=== PATIENT | male | born 1940 | race Caucasian/White ===

== ENCOUNTER → 2024-10-25 | Outpatient (CLI) | payer OTHER, SELFPAY ==
[2024-10-25 16:00] LABS: Basophils # (Auto) 0.1 Thou/mm3 (0.0-0.2); Basophils % (Auto) 1 % (0-2.5); Eosinophils # (Auto) 0.3 Thou/mm3 (0.0-0.5); Eosinophils % (Auto) 4 % (0-10); Hematocrit 44.1 % (41.0-53.0); Immature Granulocytes % (Auto) 0 % (0-0); Immature Granulocytes Auto 0.02 Thou/mm3 (0.00-0.00); Lymphocytes # (Auto) 1.7 Thou/mm3 (1.0-4.8); Lymphocytes % (Auto) 24 % (10-50); Mean Corpuscular Hemoglobin 33.3 pg (25.0-35.0); Mean Corpuscular Volume 98 fL (80-100); Monocytes # (Auto) 0.5 Thou/mm3 (0.0-0.8); Monocytes % (Auto) 7 % (0-12); Neutrophils # (Auto) 4.7 Thou/mm3 (1.8-7.7); Neutrophils % (Auto) 64 % (37-80); Nucleated Red Blood Cell % 0 /100 WBC (0); Platelet Count 191 Thou/mm3 (140-440); RDW Standard Deviation 51.1 fL (35.1-43.9); White Blood Count 7.4 Thou/mm3 (3.8-10.6)
[2024-10-25 16:32] LABS: Glucose Estimated Average 120 mg/dL (80-131); Hemoglobin A1C 5.8 % Hgb (4.8-6.0)
[2024-10-25 16:36] LABS: Alanine Aminotransferase 19 U/L (10-49); Albumin, Serum 4.3 gm/dL (3.4-4.8); Albumin/Globulin Ratio 1.9 (1.2-2.2); Alkaline Phosphatase 59 U/L (46-116); Anion Gap 5 (7-16); Aspartate Amino Transferase 35 U/L (0-34); BUN/Creatinine Ratio 14 Ratio (12-20); Bilirubin,Total 0.9 mg/dL (0.3-1.2); Blood Urea Nitrogen 15 mg/dL (9-23); Calcium 9.8 mg/dL (8.3-10.6); Calcium (Corrected) 9.8 mg/dL (8.5-10.1); Cardiac Risk Estimate 3.2 RATIO (4.0-6.7); Chloride 105 mMol/L (98-107); Cholesterol 90 mg/dL (132-200); Creatinine (Component) 1.1 mg/dL (0.6-1.3); Globulin 2.3 gm/dL (2.3-3.5); Glucose 86 mg/dL (74-106); HDL Cholesterol 28 mg/dL (40-60); LDL Cholesterol,Calculated 37 mg/dL (0-130); Osmolality,Calculated 275 (275-295); Potassium 4.2 mMol/L (3.4-5.1); Sodium 138 mMol/L (136-145); Thyroid Stimulating Hormone 2.28 uIU/mL (0.55-4.78); Total Protein 6.6 gm/dL (5.7-8.2); Triglycerides 124 mg/dL (30-150); eGFR > 60 See Note
[2024-10-25 17:00] LABS: Creatinine MALB Rnd Ur 83 mg/dL (30-125); Microalbumin Creat Ratio 261 mg/gCrea (<30); Microalbumin, Random Urine 217 mg/L (0-300)
== END | disposition home or self-care (01) ==
PROVIDERS: PCP Family Medicine; Referring Provider Family Medicine; Visit Provider Family Medicine
DX: E11.65 Type 2 diabetes mellitus with hyperglycemia (principal)
CPT/HCPCS: 36415; 80053; 80061; 82043; 82570; 83036; 84443; 85025

== ENCOUNTER → 2024-12-27 | Outpatient (CLI) | payer OTHER, SELFPAY ==
--- NOTE | 2024-12-27 13:35 | XR_ITS ---
Examination: Bone densitometry Date and time of exam:December 27, 2024 1333 hours INDICATIONS: 84-year-old male with diagnosis age related osteoporosis, diabetes diagnosis Technique: Lumbar spine and hip total bone mineralization values of an calculated. Peak reference and age match control results have been displayed. Findings: Lumbar spine total bone mineralization is1.365 gm/cm2. This is 2.5 standard deviations above peak reference. This is 3. standard deviations above age-matched controls. Hip total bone mineralization is 0.974 gm/cm2 This is 0.4 standard deviations below peak reference. This is 0.9 standard deviations above age-matched controls Impression: There is normal mineralization based on lumbar spine measurements. There is normal mineralization based on hip measurements
== END | disposition home or self-care (01) ==
LOC: CDIM 13:08
PROVIDERS: Referring Provider Family Medicine; Visit Provider Family Medicine
DX: M81.0 Age-related osteoporosis without current pathological fracture (principal)
CPT/HCPCS: 77080

== ENCOUNTER → 2025-01-31 | Outpatient (CLI) | payer OTHER, SELFPAY ==
[2025-01-31 13:46] LABS: Collection Type, Urine Clean Catch; Squamous Epithelial Cell,Urine 0 /hpf (0-5)
[2025-01-31 14:06] LABS: Basophils # (Auto) 0.1 Thou/mm3 (0.0-0.2); Basophils % (Auto) 1 % (0-2.5); Eosinophils # (Auto) 0.3 Thou/mm3 (0.0-0.5); Eosinophils % (Auto) 5 % (0-10); Immature Granulocytes % (Auto) 0 % (0-0); Immature Granulocytes Auto 0.01 Thou/mm3 (0.00-0.00); Lymphocytes # (Auto) 1.5 Thou/mm3 (1.0-4.8); Lymphocytes % (Auto) 22 % (10-50); Mean Corpuscular HGB Conc 34.1 g/dl (31.0-37.0); Mean Corpuscular Hemoglobin 32.6 pg (25.0-35.0); Mean Corpuscular Volume 96 fL (80-100); Monocytes # (Auto) 0.5 Thou/mm3 (0.0-0.8); Monocytes % (Auto) 8 % (0-12); Neutrophils # (Auto) 4.2 Thou/mm3 (1.8-7.7); Neutrophils % (Auto) 64 % (37-80); Nucleated Red Blood Cell % 0 /100 WBC (0); Platelet Count 188 Thou/mm3 (140-440); White Blood Count 6.5 Thou/mm3 (3.8-10.6)
[2025-01-31 14:13] LABS: Bilirubin,Urine Negative (Negative); Blood,Urine Negative (Negative); Clarity,Urine Clear (Clear/Hazy); Color,Urine Lt-Yellow (Lt Yel-Yel); Glucose, Urine Negative (Negative); Ketones,Urine Negative (Negative); Leukocyte Esterase,Urine Negative (Negative); Nitrite,Urine Negative (Negative); Protein,Urine 1+ (Neg - Trace); RBC,Urine 4 /hpf (0-3); Specific Gravity,Urine 1.013 (1.001-1.035); Urobilinogen,Urine Negative mg/dL (0.0-1.0); WBC,Urine 1 /hpf (0-5)
[2025-01-31 14:21] LABS: Glucose Estimated Average 160 mg/dL (80-131); Hemoglobin A1C 7.2 % Hgb (4.8-6.0)
[2025-01-31 14:24] LABS: Alanine Aminotransferase 21 U/L (10-49); Albumin, Serum 4.2 gm/dL (3.4-4.8); Albumin/Globulin Ratio 1.7 (1.2-2.2); Alkaline Phosphatase 63 U/L (46-116); Anion Gap 6 (7-16); Aspartate Amino Transferase 32 U/L (0-34); BUN/Creatinine Ratio 12 Ratio (12-20); Bilirubin,Total 0.7 mg/dL (0.3-1.2); Blood Urea Nitrogen 13 mg/dL (9-23); Calcium 10.1 mg/dL (8.3-10.6); Calcium (Corrected) 10.1 mg/dL (8.5-10.1); Carbon Dioxide 29.8 mMol/L (20.0-31.0); Chloride 105 mMol/L (98-107); Cholesterol 78 mg/dL (132-200); Creatinine (Component) 1.1 mg/dL (0.6-1.3); Globulin 2.5 gm/dL (2.3-3.5); Glucose 83 mg/dL (74-106); HDL Cholesterol 26 mg/dL (40-60); LDL Cholesterol,Calculated 24 mg/dL (0-130); Osmolality,Calculated 280 (275-295); Potassium 4.3 mMol/L (3.4-5.1); Sodium 141 mMol/L (136-145); Thyroid Stimulating Hormone 2.35 uIU/mL (0.55-4.78); Total Protein 6.7 gm/dL (5.7-8.2); Triglycerides 140 mg/dL (30-150); eGFR > 60 See Note
[2025-01-31 15:09] LABS: Creatinine MALB Rnd Ur 47 mg/dL (30-125); Microalbumin Creat Ratio 415 mg/gCrea (<30); Microalbumin, Random Urine 195 mg/L (0-300)
== END | disposition home or self-care (01) ==
LOC: COPL 13:05
PROVIDERS: PCP Family Medicine; Referring Provider Family Medicine; Visit Provider Family Medicine
DX: Z00.00 Encounter for general adult medical examination without abnormal findings (principal); E11.59 Type 2 diabetes mellitus with other circulatory complications; E78.2 Mixed hyperlipidemia; I10 Essential (primary) hypertension
CPT/HCPCS: 36415; 80053; 80061; 81001; 82043; 82570; 83036; 84443; 85025

== ENCOUNTER 2025-04-26 12:50 | Outpatient (RCR) | payer OTHER, SELFPAY ==
--- NOTE | 2025-04-26 14:35 | CTCTXPLN_ITS ---
[facility] [address] [place], [place] [address] Physician Clinical Treatment Planning Note Date of Service: 04/26/2025 Name: CIERRA HILL : 1940 The patient has agreed to proceed with Radiation therapy. Tests and supporting medical records were interpreted to assist in defining the tumor location and extent of disease. Further imaging will be necessary to contour and delineate the volume to which the XRT will be provided. A. Treatment Intent: curative B. Modality: 9MeV C. Requested Technique: D. Treatment Site: Posteror L ear E. Critical structures to be contoured on plan: F. In order to accomplish this plan, I am ordering/Prescribing the followin. Simulations (s) will be performed to accomplish a reproducible treatment position, to determine optimal treatment portals/beam arrangements, to design beam modifying devices and verify treatment portals on patient prior to the commencement of Radiation Therapy. 2. Devices; for immobilization and beam shapin. CT Guidance for placement of XRT soler Scan area: 4. Portal images Frequency: 5. Invivo transit dose measurement once per week on all VMAT patients. 6. Special Physics Consult Requested for: 7. Other requests: G. Dose Objectives:curative Electronically signed by: Jeffrey Yung M.D. 04/26/2025 2:33 PM
--- NOTE | 2025-04-26 14:37 | CTCTXPLNST_ITS ---
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 Pt Treatment Intent: curative palliative other: Stage: Procedure CPT # Ordered Spec. Procedure 03609 Rock Complex (set-up) 90208 1 Rock Simple 95698 IMRT Plan 74643 MLC Devices VMAT 09963 Rock 3 D 73213 TRTMT dev Complex 40370 Head rest/E field 2 TRTMT dev simple 91108 1 cm bolus 1 Basic Cristino 78741 1 Special Dosimetry 09175 Spec Physics 95643 Port Films 42099 SRS Cranial/1FX 14681 SBR 5 FX or Less /ex: 5 = 5 fx 79766 IMRT Simple 10597 IMRT Complex 67453 IGRT 98889 Rad del com 6-10 03961 6600 33 Rad del com 11- 30456 Cont Med Physics 44876 6 Treatment Planning 51700 1 Rad del com 20 mev 11207 Rad del inter 6 65048 Rad del inter 11 15433 Rad del simple 6-10 54323 Rad del simple 11 42973 Special Port Plan 11814 TRTMT dev inter 21701 Isodose Complex 21931 Isodose simple 99791 Resp Motion Mgmt Simulation 79737 Placement of Fiducial Markers 18013 Electronically Signed By: Jeffrey Yung MD, DABR 04/26/2025 2:34 PM
--- NOTE | 2025-04-26 16:58 | CTCCONSULT_ITS ---
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 Norris Owen MD [facility] History of Present Illness: Patient is an 84-year-old gentleman who had a biopsy of his left posterior ear 01/18/2025. revealing SCCA well-differentiated. There was Mohs micrographic surgery performed by Dr. Gumaro Cassidy March 16 but due to inability to clear margins, was recommended for postop radiation therapy. Preop lesion was described to be 2.6 cm ulcerated plaque on the posterior aspect the left ear. Postop described to be 5 cm in size grade 1 PNI positive. Depth of invasion was noted to be to the perichondrium. Patient was evaluated for radiation therapy at [facility] but due to the long distance involved for this elderly gentleman and the standard fractions needed due to the cartilaginous involvement was referred to the cancer center where he lives in [facility] Past Medical History: Diabetes GERD hypertension cardiac arrhythmia multiple pre and skin cancers removed on extremities and elsewhere over the years. Medications amlodipine atorvastatin Betamethasone Allergies none known Social History: Denies drinking smoking retired Physical Exam: General: Well-appearing gentleman no acute distress HEENT: 5 cm area longitudinal healing region in the left posterior auricular region. Neck nodes not felt. Assessment: 1. Patient with T3 sized area SCCA grade 1 positive PNI positive margins invading cartilaginous tissues status post Mohs microscopic surgery February 1725. 2. Postop radiation using standard fractionation 6000 to 6500 cGy to a moderate-sized field reducing chance for cartilage damage. 3. CT of the neck reportedly has been ordered. Will also do pacemaker check pre and post treatments. 4. Patient told the side effects to radiation to site such as skin effects and fatigue. 5. Would like to thank Dr. Norris Owen for his kind referral to have patient treated closer to home. Cc: Lupillo Owen MD [facility]. MD Aunradha Abarca Electronically signed by: Jeffrey Yung MD, DABR 04/26/2025 4:55 PM
== END 2025-04-29 23:59 | disposition home or self-care (01) ==
LOC: SCTC 12:50
PROVIDERS: PCP Internal Medicine; Referring Provider Internal Medicine; Visit Provider Radiology Therapeutic Radiology
DX: C44.229 Squamous cell carcinoma of skin of left ear and external auricular canal (principal)
CPT/HCPCS: 99213; G0463

== ENCOUNTER → 2025-05-18 | Outpatient (CLI) | payer OTHER, SELFPAY ==
[2025-05-18 13:45] LABS: Alanine Aminotransferase 30 U/L (10-49); Albumin, Serum 4.1 gm/dL (3.4-4.8); Albumin/Globulin Ratio 1.9 (1.2-2.2); Alkaline Phosphatase 82 U/L (46-116); Anion Gap 5 (7-16); Aspartate Amino Transferase 44 U/L (0-34); BUN/Creatinine Ratio 14 Ratio (12-20); Bilirubin,Total 0.5 mg/dL (0.3-1.2); Blood Urea Nitrogen 15 mg/dL (9-23); Calcium 9.7 mg/dL (8.3-10.6); Calcium (Corrected) 9.7 mg/dL (8.5-10.1); Carbon Dioxide 29.5 mMol/L (20.0-31.0); Chloride 103 mMol/L (98-107); Creatinine (Component) 1.1 mg/dL (0.6-1.3); Globulin 2.2 gm/dL (2.3-3.5); Glucose 136 mg/dL (74-106); Osmolality,Calculated 276 (275-295); Potassium 4.8 mMol/L (3.4-5.1); Sodium 137 mMol/L (136-145); Total Protein 6.3 gm/dL (5.7-8.2); eGFR > 60 See Note
== END | disposition home or self-care (01) ==
PROVIDERS: PCP Family Medicine; Referring Provider Radiology Therapeutic Radiology; Visit Provider Radiology Therapeutic Radiology
DX: C44.209 Unspecified malignant neoplasm of skin of left ear and external auricular canal (principal)
CPT/HCPCS: 36415; 80053

== ENCOUNTER → 2025-05-25 | Outpatient (CLI) | payer OTHER, SELFPAY ==
--- NOTE | 2025-05-25 14:00 | XR_ITS ---
Examination: CT soft tissue neck, with intravenous contrast. 2-D coronal reconstructions. 2-D sagittal reconstructions. Date and time of exam :May 25, 2025 at 1431 hours INDICATIONS: Diagnosis malignant neoplasm skin left ear open nonhealing back of the left ear one year. CTDI: vol (mGy):12.9 DLP: (mGycm):400 Technique: 1.25 mm axial sections of the neck of the obtained. Coronal and sagittal reconstructions have been obtained. Intravenous contrast administered 60 cc Isovue-370. Low dose protocols were performed. One or more of the following dose reduction techniques were used; automated exposure control, adjustment of the mA and/or KV according to patient size, use of iterative reconstruction technique. Findings: Symmetrical nasopharynx oropharynx Abnormal diffuse soft tissue mass involving the left year and soft tissue medial to the left ear axial image 28 through 13 No erosion of the adjacent mastoid bone Soft tissue density extends into the external auditory canal Left carotid triangle lymphadenopathy, lymph nodes measuring up to 10 mm The larynx appears normal IMPRESSION: Diffuse abnormal soft tissue mass at least 32 x 22 mm involving the left ear and extending into the soft tissue medial to the left ear and into the left external auditory canal Left carotid triangle lymphadenopathy Consider PET CT scan follow-up
== END | disposition home or self-care (01) ==
PROVIDERS: PCP Family Medicine; Referring Provider Radiology Therapeutic Radiology; Visit Provider Radiology Therapeutic Radiology
DX: R59.0 Localized enlarged lymph nodes (principal); C44.209 Unspecified malignant neoplasm of skin of left ear and external auricular canal
CPT/HCPCS: 70491; A4649; Q9967

== ENCOUNTER → 2025-05-30 | Outpatient (CLI) | payer OTHER, SELFPAY ==
[2025-05-30 14:06] LABS: Glucose Estimated Average 157 mg/dL (80-131); Hemoglobin A1C 7.1 % Hgb (4.8-6.0)
[2025-05-30 14:10] LABS: Alanine Aminotransferase 35 U/L (10-49); Albumin, Serum 4.1 gm/dL (3.4-4.8); Albumin/Globulin Ratio 1.7 (1.2-2.2); Alkaline Phosphatase 84 U/L (46-116); Anion Gap 6 (7-16); Aspartate Amino Transferase 55 U/L (0-34); BUN/Creatinine Ratio 14 Ratio (12-20); Bilirubin,Total 0.8 mg/dL (0.3-1.2); Blood Urea Nitrogen 15 mg/dL (9-23); Calcium 9.5 mg/dL (8.3-10.6); Calcium (Corrected) 9.5 mg/dL (8.5-10.1); Carbon Dioxide 28.5 mMol/L (20.0-31.0); Cardiac Risk Estimate 4.3 RATIO (4.0-6.7); Chloride 106 mMol/L (98-107); Cholesterol 81 mg/dL (132-200); Creatinine (Component) 1.1 mg/dL (0.6-1.3); Globulin 2.4 gm/dL (2.3-3.5); Glucose 82 mg/dL (74-106); HDL Cholesterol 19 mg/dL (40-60); LDL Cholesterol,Calculated 35 mg/dL (0-130); Osmolality,Calculated 279 (275-295); Potassium 4.0 mMol/L (3.4-5.1); Sodium 140 mMol/L (136-145); Total Protein 6.5 gm/dL (5.7-8.2); Triglycerides 133 mg/dL (30-150); Uric Acid 4.7 mg/dL (3.7-9.2); eGFR > 60 See Note
== END | disposition home or self-care (01) ==
LOC: COPL 12:50
PROVIDERS: PCP Family Medicine; Referring Provider Family Medicine; Visit Provider Family Medicine
DX: E11.59 Type 2 diabetes mellitus with other circulatory complications (principal); I10 Essential (primary) hypertension; E78.2 Mixed hyperlipidemia; E79.0 Hyperuricemia without signs of inflammatory arthritis and tophaceous disease
CPT/HCPCS: 36415; 80053; 80061; 83036; 84550

== ENCOUNTER 2025-06-21 14:52 | Outpatient (RCR) | payer OTHER, SELFPAY ==
--- NOTE | 2025-06-21 15:54 | CTCFLWUP_ITS ---
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 This appears infected. I placed patient on Keflex and also renewed his pain pills I we will see him next week right after the PET scan. Told him to go to ER in case of chills fever etc. Electronically signed by: Jeffrey Yung M.D. 06/21/2025 3:52 PM
== END 2025-06-29 23:59 | disposition home or self-care (01) ==
LOC: SCTC 14:52
PROVIDERS: Referring Provider Radiology Therapeutic Radiology; Visit Provider Radiology Therapeutic Radiology
DX: H92.02 Otalgia, left ear (principal); R60.9 Edema, unspecified; L53.9 Erythematous condition, unspecified; C44.229 Squamous cell carcinoma of skin of left ear and external auricular canal
CPT/HCPCS: 99212; G0463

== ENCOUNTER → 2025-06-29 | Outpatient (CLI) | payer OTHER, SELFPAY ==
--- NOTE | 2025-06-29 14:31 | XR_ITS ---
EXAMINATION: PET/CT FUSION SKULL TO THIGH EXAM DATE AND TIME: June 29, 2025, 1556 hours INDICATIONS: Diagnosis basal cell skin carcinoma, staging prior to treatment, CT soft tissue neck May 25, 2025 soft tissue mass 32 x 22 mm involving the left ear and extending into the soft tissues medial to the left ear and into the external auditory canal with carotid triangle lymphadenopathy CTDI:vol (mGy) 9.27 DLP: (mGycm) 846.41 PROCEDURE: 14.8 mCi FDG was administered intravenously To allow for distribution and uptake of radiotracer, the patient was allowed to rest quietly in a shielded room. Imaging was performed on an integrated 16-slice PET/CT scanner, with scanning from the skull base to the mid thigh. Serum blood glucose at the time of the injection was measured 91 mg/dL. CT scanning was performed without oral or intravenous contrast material. FINDINGS: Head and Neck: Hypermetabolic soft tissue mass left ear extending into the pinna and partly into the left external auditory canal, measuring at least 30 x 20 mm Weakly hypermetabolic 14 mm metastatic nodule posterior to the angle of mandible on the left image 51 Lateral posterior inferior metastatic cervical hypermetabolic lymph node image 60 which is supraclavicular measuring 10 mm and adjacent 9 mm lymph node Chest: There is no rody hypermetabolism in the chest. There are no pulmonary nodules. Abdomen and Pelvis: There is no rody hypermetabolism in retroperitoneal or pelvic chains. The spleen is normal in size and FDG avidity. Musculoskeletal: Marrow uptake is within normal range. IMPRESSION: Hypermetabolic soft tissue mass left ear extending into the pinna and partly into the left external auditory canal measuring at least 30 x 20 mm Metastatic cervical lymph nodes as above
== END | disposition home or self-care (01) ==
PROVIDERS: PCP Family Medicine; Referring Provider Radiology Therapeutic Radiology; Visit Provider Radiology Therapeutic Radiology
DX: H93.8X2 Other specified disorders of left ear (principal); C79.89 Secondary malignant neoplasm of other specified sites; C44.209 Unspecified malignant neoplasm of skin of left ear and external auricular canal
CPT/HCPCS: 78815; A9552

== ENCOUNTER 2025-07-26 13:49 | Outpatient (RCR) | payer OTHER, SELFPAY ==
--- NOTE | 2025-07-03 14:23 | CTCTXPLNST_ITS ---
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 Pt Treatment Intent: curative palliative other: Stage: Procedure CPT # Ordered Spec. Procedure 63592 1 Rock Complex (set-up) 73209 Head and neck 1 Rock Simple 93863 IMRT Plan 52874 1 MLC Devices VMAT 00616 3 Rock 3 D 94787 TRTMT dev Complex 38822 Aqua Plast 1 TRTMT dev simple 30580 Basic Cristino 91457 9 Special Dosimetry 48211 Spec Physics 86230 Port Films 66731 SRS Cranial/1FX 85239 SBR 5 FX or Less /ex: 5 = 5 fx 21788 IMRT Simple 39158 7000 35 IMRT Complex 57338 IGRT 42433 35 Rad del com 6-10 81975 Rad del com 11- 70521 Cont Med Physics 41625 7 Treatment Planning 89466 1 Rad del com 20 mev 04784 Rad del inter 6-10 18151 Rad del inter 11 79328 Rad del simple 6-10 65929 Rad del simple 11-19 45624 Special Port Plan 10812 TRTMT dev inter 40472 Isodose Complex 20118 Isodose simple 24905 Resp Motion Mgmt Simulation 66638 Placement of Fiducial Markers 11587 Electronically Signed By: Jeffrey Yung MD, OMAYRAR 07/03/2025 2:21 PM
--- NOTE | 2025-07-03 14:24 | CTCTXPLN_ITS ---
[facility] [place] [address] [place], [place] [address] Physician Clinical Treatment Planning Note Date of Service: 07/03/2025 Name: TROY HILL : 1940 The patient has agreed to proceed with Radiation therapy. Tests and supporting medical records were interpreted to assist in defining the tumor location and extent of disease. Further imaging will be necessary to contour and delineate the volume to which the XRT will be provided. A. Treatment Intent: Curative B. Modality: 6 MV C. Requested Technique: VMAT D. Treatment Site: Left ear and neck E. Critical structures to be contoured on plan: F. In order to accomplish this plan, I am ordering/Prescribing the followin. Simulations (s) will be performed to accomplish a reproducible treatment position, to determine optimal treatment portals/beam arrangements, to design beam modifying devices and verify treatment portals on patient prior to the commencement of Radiation Therapy. Curative 2. Devices; for immobilization and beam shaping: Aqua Plast 3. CT Guidance for placement of XRT soler Scan area: 4. Portal images Frequency: 5. Invivo transit dose measurement once per week on all VMAT patients. 6. Special Physics Consult Requested for: 7. Other requests: Special procedure chemoradiation G. Dose Objectives: Electronically signed by: Jeffrey Yung M.D. 07/03/2025 2:22 PM
--- NOTE | 2025-07-24 15:04 | CTCCONSULT_ITS ---
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 Tobacco?Pack?per?Day:?0 ETOH?Use:?DENIES Drug?Note:?DENIES Social?History?Note:?LIVES???WITH? MEDICATIONS: 1. amlodipine - 5 mg Daily 2. fenofibrate - As directed 3. hydrocodone-acetaminophen - 5-325 mg 1 - 2 tab q6 4. Lipitor - 10 mg Daily 5. metformin - 1,000 mg Daily 6. omeprazole - 20 mg Daily Medications Last Reconciled by Pao Donald LVN on 07/24/2025 ALLERGIES: No Known Drug Allergies REVIEW OF SYSTEMS: A complete 14-point review of systems was performed and is negative except as noted in interval history. PHYSICAL EXAMINATION: VITAL SIGNS: Temperature?100, B/P?158/80 Weight?210?lbs PAIN: 4 - Moderate pain ECOG Performance Status: 1 - Symptomatic; ambulatory; restricted in strenuous activity GENERAL APPEARANCE: Appears well, in no apparent distress, appropriately interactive. HEENT: Normocephalic, no temporal wasting, normal conjunctiva, no scleral icterus, normal hearing, lips without lesions, neck normal range of motion. CARDIOVASCULAR: Not assessed. PULMONARY: Normal respiratory effort, no respiratory distress or use of accessory muscles, speaking in full sentences, no tachypnea. EXTREMITIES: No pedal edema or cyanosis. SKIN: Normal skin appearance. NEUROLOGIC: Alert and oriented x4. PSHYCHIATRIC: Appropriate affect, mood normal, behavior normal, intact thought and speech. LABORATORY DATA: I have personally reviewed and interpreted each of the patient?s relevant lab tests, abnormal findings are below: Date 05/18/25 05/30/25 ??GLUCOSE,RANDOM?(mg/dL) 136?H 82 ??BLOOD?UREA?NITROGEN?(mg/dL) 15 15 ??CREATININE?(mg/dL) 1.10 1.10 ??SODIUM?(mmol/L) 137 140 ??POTASSIUM?(mmol/L) 4.8 4.0 ??CHLORIDE?(mmol/L) 103 106 ??AST/SGOT?(Unit/L) 44?H 55?H ??ALT/SGPT?(Unit/L) 30 35 ??ALKALINE?PHOSPHATASE?(Unit/L) 82 84 ??BILIRUBIN,?TOTAL?(mg/dL) 0.5 0.8 ??PROTEIN?TOTAL?(gm/dl) 6.3 6.5 ??ALBUMIN,?SERUM?(gm/dl) 4.1 4.1 ??GLOBULIN?(gm/dl) 2.2?L 2.4 ??ALBUMIN/GLOBULIN?RATIO 1.9 1.7 ??CALCIUM,?SERUM?(mg/dL) 9.7 9.5 ??CALCIUM?SERUM?(CORRECTED)?(mg/dL) 9.7 9.5 ASSESSMENT/PLAN: Cutaneous squamous cell cancer Patient have locally advanced disease as well as cervical lymph nodes Not a candidate for definitive surgery Patient is getting palliative radiation Will start on cemiplimab once patient has completed radiation Port catheter placement TSH T4 Start treatment once patient has completed radiotherapy ORDERS: Order # Description [id number] Follow Up 4 Week + Comprehensive Metabolic Panel - 12 + CBC with Auto Diff [id number] CBC + Comprehensive Metabolic Panel [id number] Lab Appointment [id number] Follow Up Appointment [id number] CBC + Comprehensive Metabolic Panel [id number] Lab Appointment [id number] Follow Up Appointment [id number] CBC + Comprehensive Metabolic Panel [id number] Lab Appointment [id number] Follow Up Appointment [id number] CBC + Comprehensive Metabolic Panel [id number] Lab Appointment [id number] Follow Up Appointment [id number] CBC + Comprehensive Metabolic Panel [id number] Lab Appointment [id number] Follow Up Appointment [id number] CBC + Comprehensive Metabolic Panel [id number] Lab Appointment [id number] Follow Up Appointment [id number] CBC + Comprehensive Metabolic Panel [id number] Lab Appointment [id number] Follow Up Appointment [id number] CBC + Comprehensive Metabolic Panel [id number] Lab Appointment [id number] Follow Up Appointment [id number] CBC + Comprehensive Metabolic Panel [id number] Lab Appointment [id number] Follow Up Appointment [id number] CBC + Comprehensive Metabolic Panel [id number] Lab Appointment [id number] Follow Up Appointment [id number] CBC + Comprehensive Metabolic Panel [id number] Lab Appointment [id number] Follow Up Appointment [id number] CBC + Comprehensive Metabolic Panel [id number] Lab Appointment [id number] Follow Up Appointment [id number] CBC + Comprehensive Metabolic Panel [id number] Lab Appointment [id number] Follow Up Appointment [id number] CBC + Comprehensive Metabolic Panel [id number] Lab Appointment [id number] Follow Up Appointment [id number] CBC + Comprehensive Metabolic Panel [id number] Lab Appointment [id number] Follow Up Appointment [id number] CBC + Comprehensive Metabolic Panel [id number] Lab Appointment [id number] Follow Up Appointment [id number] CBC + Comprehensive Metabolic Panel [id number] Lab Appointment [id number] Follow Up Appointment [id number] CBC + Comprehensive Metabolic Panel [id number] Lab Appointment [id number] Follow Up Appointment [id number] CBC + Comprehensive Metabolic Panel [id number] Lab Appointment [id number] Follow Up Appointment [id number] CBC + Comprehensive Metabolic Panel [id number] Lab Appointment [id number] Follow Up Appointment [id number] CBC + Comprehensive Metabolic Panel [id number] Lab Appointment [id number] Follow Up Appointment [id number] CBC + Comprehensive Metabolic Panel [id number] Lab Appointment [id number] Follow Up Appointment [id number] CBC + Comprehensive Metabolic Panel [id number] Lab Appointment [id number] Follow Up Appointment [id number] CBC + Comprehensive Metabolic Panel [id number] Lab Appointment [id number] Follow Up Appointment [id number] CBC + Comprehensive Metabolic Panel [id number] Lab Appointment [id number] Follow Up Appointment [id number] CBC + Comprehensive Metabolic Panel [id number] Lab Appointment [id number] Follow Up Appointment RETURN TO CLINIC: I reviewed the diagnosis, prognosis, and recommended treatment/procedure options with the patient (and/or their legal in store representative), including the potential benefits, risks, side effects and alternative therapies. We also discussed the option of no treatment and the possibility of clinical trial participation, if applicable. All questions were addressed, and they demonstrated understanding. They provided informed consent to proceed with the proposed plan of care. BILLING AND COMPLIANCE: I reviewed external records from providers outside my specialty as summarized above. I spent a total of 50 minutes on this patient?s care on the day of their visit excluding time spent related to any billed procedures. This time includes time spent with the patient as well as time spent documenting in the medical record, reviewing patients records and tests, obtaining history, placing orders, communicating with other healthcare professionals, counseling the patient, family or caregiver, and/or care coordination for the diagnoses above. Electronically Signed by: {Object.Sanct_ID*PnP.NameFL@M}, {Object.Sanct_ID*PnP.Suffix@U} D: {Object.Sanct_Date} T: {Object.Sanct_Time} CC: PCP: Loc Akins Referring: Loc Akins This document was completed utilizing speech recognition software. Grammatical errors, random word insertions, pronoun errors, and incomplete sentences are an occasional consequence of this system due to software limitations, ambient noise, and hardware issues. Any formal questions or concerns about the content, text or information contained within the body of this dictation should be directly addressed to the provider for clarification.
== END 2025-07-30 23:59 | disposition home or self-care (01) ==
LOC: SCTC 13:49
PROVIDERS: PCP Family Medicine; Referring Provider Family Medicine; Visit Provider Internal Medicine Hematology & Oncology
DX: Z51.0 Encounter for antineoplastic radiation therapy (principal); C44.229 Squamous cell carcinoma of skin of left ear and external auricular canal
CPT/HCPCS: 77014; 77290; 77300; 77301; 77334; 77338; 77385; 77470; 99213; G0463

== ENCOUNTER 2025-08-29 13:43 | Outpatient (RCR) | payer OTHER, SELFPAY ==
--- NOTE | 2025-08-28 00:35 | CTCFLWUP_ITS ---
Patient: TROY HILL : 1940 Page 2 of 4 FOLLOW UP NOTE DATE OF SERVICE: 08/22/2025 NAME: TROY HILL ACCOUNT: [id number] : 1940 AGE: 85 INTERVAL HISTORY: Patient have not yet started treatment. Patient is doing radiation and will start immunotherapy once radiation is complete. 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 Tobacco?Pack?per?Day:?0 ETOH?Use:?DENIES Drug?Note:?DENIES Social?History?Note:?LIVES???WITH? MEDICATIONS: 1. amlodipine - 5 mg Daily 2. fenofibrate - As directed 3. hydrocodone-acetaminophen - 5-325 mg 1 - 2 tab q6 4. Lipitor - 10 mg Daily 5. metformin - 1,000 mg Daily 6. omeprazole - 20 mg Daily Medications Last Reconciled by Macie Conley MD on 08/22/2025 ALLERGIES: No Known Drug Allergies REVIEW OF SYSTEMS: A complete 14-point review of systems was performed and is negative except as noted in interval history. PHYSICAL EXAMINATION: VITAL SIGNS: Temperature?99.2, B/P?137/75, Oxygen?Saturation?94% Weight?208?lbs (Change?since?07/24/25:?-2?lbs) PAIN: 0 - No pain GENERAL APPEARANCE: Appears well, in no apparent distress, appropriately interactive. HEENT: Normocephalic, no temporal wasting, normal conjunctiva, no scleral icterus, normal hearing, lips without lesions, neck normal range of motion. CARDIOVASCULAR: Not assessed. PULMONARY: Normal respiratory effort, no respiratory distress or use of accessory muscles, speaking in full sentences, no tachypnea. EXTREMITIES: No pedal edema or cyanosis. SKIN: Normal skin appearance. NEUROLOGIC: Alert and oriented x4. PSHYCHIATRIC: Appropriate affect, mood normal, behavior normal, intact thought and speech. LABORATORY DATA: I have personally reviewed and interpreted each of the patient?s relevant lab tests, abnormal findings are below: Date 05/18/25 05/30/25 ??GLUCOSE,RANDOM?(mg/dL) 136?H 82 ??BLOOD?UREA?NITROGEN?(mg/dL) 15 15 ??CREATININE?(mg/dL) 1.10 1.10 ??SODIUM?(mmol/L) 137 140 ??POTASSIUM?(mmol/L) 4.8 4.0 ??CHLORIDE?(mmol/L) 103 106 ??AST/SGOT?(Unit/L) 44?H 55?H ??ALT/SGPT?(Unit/L) 30 35 ??ALKALINE?PHOSPHATASE?(Unit/L) 82 84 ??BILIRUBIN,?TOTAL?(mg/dL) 0.5 0.8 ??PROTEIN?TOTAL?(gm/dl) 6.3 6.5 ??ALBUMIN,?SERUM?(gm/dl) 4.1 4.1 ??GLOBULIN?(gm/dl) 2.2?L 2.4 ??ALBUMIN/GLOBULIN?RATIO 1.9 1.7 ??CALCIUM,?SERUM?(mg/dL) 9.7 9.5 ??CALCIUM?SERUM?(CORRECTED)?(mg/dL) 9.7 9.5 ASSESSMENT/PLAN: Cutaneous squamous cell cancer Patient have locally advanced disease as well as cervical lymph nodes Not a candidate for definitive surgery Patient is getting palliative radiation Will start on cemiplimab once patient has completed radiation Port catheter placement. Patient advised to make appointment TSH T4 Start treatment once patient has completed radiotherapy ORDERS: Order # Description [id number] Follow Up Appointment [id number] CBC + Comprehensive Metabolic Panel [id number] Lab Appointment [id number] Follow Up Appointment [id number] CBC + Comprehensive Metabolic Panel [id number] Lab Appointment [id number] Follow Up Appointment [id number] CBC + Comprehensive Metabolic Panel [id number] Lab Appointment [id number] Follow Up Appointment [id number] CBC + Comprehensive Metabolic Panel [id number] Lab Appointment [id number] Follow Up Appointment [id number] CBC + Comprehensive Metabolic Panel [id number] Lab Appointment [id number] Follow Up Appointment [id number] CBC + Comprehensive Metabolic Panel [id number] Lab Appointment [id number] Follow Up Appointment [id number] CBC + Comprehensive Metabolic Panel [id number] Lab Appointment [id number] Follow Up Appointment [id number] CBC + Comprehensive Metabolic Panel [id number] Lab Appointment [id number] Follow Up Appointment [id number] CBC + Comprehensive Metabolic Panel [id number] Lab Appointment [id number] Follow Up Appointment [id number] CBC + Comprehensive Metabolic Panel [id number] Lab Appointment [id number] Follow Up Appointment [id number] CBC + Comprehensive Metabolic Panel [id number] Lab Appointment [id number] Follow Up Appointment [id number] CBC + Comprehensive Metabolic Panel [id number] Lab Appointment [id number] Follow Up Appointment [id number] CBC + Comprehensive Metabolic Panel [id number] Lab Appointment [id number] Follow Up Appointment [id number] CBC + Comprehensive Metabolic Panel [id number] Lab Appointment [id number] Follow Up Appointment [id number] CBC + Comprehensive Metabolic Panel [id number] Lab Appointment [id number] Follow Up Appointment [id number] CBC + Comprehensive Metabolic Panel [id number] Lab Appointment [id number] Follow Up Appointment [id number] CBC + Comprehensive Metabolic Panel [id number] Lab Appointment [id number] Follow Up Appointment [id number] CBC + Comprehensive Metabolic Panel [id number] Lab Appointment [id number] Follow Up Appointment [id number] CBC + Comprehensive Metabolic Panel [id number] Lab Appointment [id number] Follow Up Appointment [id number] CBC + Comprehensive Metabolic Panel [id number] Lab Appointment [id number] Follow Up Appointment [id number] CBC + Comprehensive Metabolic Panel [id number] Lab Appointment [id number] Follow Up Appointment [id number] CBC + Comprehensive Metabolic Panel [id number] Lab Appointment [id number] Follow Up Appointment [id number] CBC + Comprehensive Metabolic Panel [id number] Lab Appointment [id number] Follow Up Appointment [id number] CBC + Comprehensive Metabolic Panel [id number] Lab Appointment [id number] Follow Up Appointment RETURN TO CLINIC: I reviewed the diagnosis, prognosis, and recommended treatment/procedure options with the patient (and/or their legal promotions representative), including the potential benefits, risks, side effects and alternative therapies. We also discussed the option of no treatment and the possibility of clinical trial participation, if applicable. All questions were addressed, and they demonstrated understanding. They provided informed consent to proceed with the proposed plan of care. BILLING AND COMPLIANCE: I reviewed external records from providers outside my specialty as summarized above. I spent a total of 50 minutes on this patient?s care on the day of their visit excluding time spent related to any billed procedures. This time includes time spent with the patient as well as time spent documenting in the medical record, reviewing patients records and tests, obtaining history, placing orders, communicating with other healthcare professionals, counseling the patient, family or caregiver, and/or care coordination for the diagnoses above. Electronically Signed by: Marvin Swenson MD T: 12:33 AM CC: PCP: Loc Akins Referring: Loc Akins This document was completed utilizing speech recognition software. Grammatical errors, random word insertions, pronoun errors, and incomplete sentences are an occasional consequence of this system due to software limitations, ambient noise, and hardware issues. Any formal questions or concerns about the content, text or information contained within the body of this dictation should be directly addressed to the provider for clarification.
== END 2025-08-29 23:59 | disposition home or self-care (01) ==
LOC: SCTC 13:43
PROVIDERS: PCP Family Medicine; Referring Provider Family Medicine; Visit Provider Internal Medicine Hematology & Oncology
DX: Z51.0 Encounter for antineoplastic radiation therapy (principal); C44.229 Squamous cell carcinoma of skin of left ear and external auricular canal; M54.50 Low back pain, unspecified
CPT/HCPCS: 77336; 77385; 99212; G0463

== ENCOUNTER 2025-09-12 09:34 | Outpatient (CLI) | payer OTHER, SELFPAY ==
[2025-09-08 15:41] VITALS: BMI 31.3
[2025-09-11 13:26] LABS: Basophils # (Auto) 0.1 Thou/mm3 (0.0-0.2); Basophils % (Auto) 1 % (0-2.5); Eosinophils # (Auto) 0.2 Thou/mm3 (0.0-0.5); Eosinophils % (Auto) 4 % (0-10); Hematocrit 41.9 % (41.0-53.0); Hemoglobin 14.2 g/dL (13.5-16.0); Immature Granulocytes Auto 0.01 Thou/mm3 (0.00-0.00); Lymphocytes # (Auto) 0.7 Thou/mm3 (1.0-4.8); Lymphocytes % (Auto) 11 % (10-50); Mean Corpuscular HGB Conc 33.9 g/dl (31.0-37.0); Mean Corpuscular Hemoglobin 32.6 pg (25.0-35.0); Mean Corpuscular Volume 96 fL (80-100); Monocytes # (Auto) 0.4 Thou/mm3 (0.0-0.8); Monocytes % (Auto) 8 % (0-12); Neutrophils # (Auto) 4.4 Thou/mm3 (1.8-7.7); Neutrophils % (Auto) 76 % (37-80); Nucleated Red Blood Cell # 0.00 Thou/mm3 (0.00-0.00); Nucleated Red Blood Cell % 0 /100 WBC (0); Platelet Count 197 Thou/mm3 (140-440); RDW Standard Deviation 49.6 fL (35.1-43.9); Red Blood Count 4.36 Miln/mm3 (4.50-5.90); White Blood Count 5.8 Thou/mm3 (3.8-10.6)
[2025-09-11 13:40] LABS: INR 1.1 (0.9-1.3); Partial Thromboplastin Time 32.3 Seconds (22.0-36.0); Prothrombin Time 11.4 Seconds (9.0-12.2)
[2025-09-12] VITALS (15 sets, daily range): BP systolic 124–162; BP diastolic 70–84; PULSE 57–74; RESP 12–22; TEMP 36.8; O2SAT 95–100
--- NOTE | 2025-09-12 11:00 | XR_ITS ---
Exam: Fluoroscopic and ultrasound-guided right IJ port placement. Date: 09/12/2025, 10:49 a.m. Indication: Access for chemotherapy. Fluoroscopy time 1.2 minutes Dose: 13.77 mGy Technique: After a discussion of risks and benefits informed consent was obtained from the patient. Patient was brought to the angiography suite and placed supine on the exam table. Preliminary ultrasound evaluation showed the left IJ to be patent. The skin overlying the left neck and upper chest was cleaned and draped in normal sterile surgical fashion. Maximum sterile barrier technique mass sterile gown, sterile gloves, and sterile full body drape, sterile probe covers hand hygiene proper scrub soap and water20 cc's of 1% lidocaine was used for local anesthesia. Conscious sedation was begun with direct nursing supervision. Using ultrasound guidance access to the IJ was obtained with a micropuncture needle. An 0.018 wire was advanced through the needle into the SVC and the needle was withdrawn. A 5 Japanese micropuncture change sheath was advanced over the wire, and the wire removed. The sheath was capped. A 5 cm incision was made over left chest. Small pouch was created with a combination of sharp and blunt dissection. The port and catheter tubing were attached to the tunneling device and pulled underneath the skin and exiting at the IJ access site. IJ 5 Fr sheath was replaced with a 7 Japanese peel-away sheath. Catheter was advanced through the peel-away sheath and peel-away sheath was removed. Distal catheter tip was appropriately positioned at the cavoatrial junction. The port pocket was closed with deep interrupted sutures using 2-0 Vicryl and superficial running sutures utilized 3-0 Vicryl. IJ access site was closed with Dermabond glue Port flushed and aspirated easily and is ready for use. Impression: Successful placement of left IJ port as above with distal tip at the caval atrial junction Catheter is ready for use.
[2025-09-12] MEDS: HEPARIN SOD LOCK SYR 100 UNIT/ML 500 UNIT STFIELD (11:10)
[2025-09-12] MEDS: MIDAZOLAM INJ 1 MG/ML VIAL 2 ML IV (11:28)
[2025-09-12] MEDS: fentaNYL CIT INJ 50 mCg/ML AMP 2ML 100 MCG IVP (11:28)
[2025-09-12] MEDS: LIDOCAINE INJ PF 1% 30 ML VIAL INFL (11:32)
--- NOTE | 2025-09-12 13:34 | PC.NURSE ---
Per Dr. Brush patient can restart Eliquis tomorrow 09/13/25. Patient and son aware
--- NOTE | 2025-09-12 13:35 | PC.NURSE ---
Jonathan Castro took patient to the cancer treatment center via wheelchair post recovery
== END 2025-09-12 13:30 | disposition home or self-care (01) ==
PROVIDERS: Radiology Diagnostic Radiology; PCP Family Medicine; Referring Provider Internal Medicine Hematology & Oncology; Visit Provider Radiology Diagnostic Radiology
DX: C44.209 Unspecified malignant neoplasm of skin of left ear and external auricular canal (principal)
CPT/HCPCS: 36571; 36415; 76937; 77001; 82565; 84520; 85025; 85610; 85730; 99152; A4649; C1769; C1788; C1894; J0689; J0690; J1642; J2250; J3010; J3490; J7050

== ENCOUNTER → 2025-09-19 | Outpatient (CLI) | payer OTHER, SELFPAY ==
[2025-09-19 13:30] LABS: Basophils # (Auto) 0.1 Thou/mm3 (0.0-0.2); Basophils % (Auto) 1 % (0-2.5); Eosinophils # (Auto) 0.3 Thou/mm3 (0.0-0.5); Eosinophils % (Auto) 6 % (0-10); Hematocrit 41.7 % (41.0-53.0); Hemoglobin 13.9 g/dL (13.5-16.0); Immature Granulocytes Auto 0.01 Thou/mm3 (0.00-0.00); Lymphocytes # (Auto) 0.6 Thou/mm3 (1.0-4.8); Lymphocytes % (Auto) 11 % (10-50); Mean Corpuscular HGB Conc 33.3 g/dl (31.0-37.0); Mean Corpuscular Hemoglobin 32.3 pg (25.0-35.0); Mean Corpuscular Volume 97 fL (80-100); Monocytes # (Auto) 0.5 Thou/mm3 (0.0-0.8); Monocytes % (Auto) 9 % (0-12); Neutrophils # (Auto) 3.5 Thou/mm3 (1.8-7.7); Neutrophils % (Auto) 72 % (37-80); Nucleated Red Blood Cell # 0.00 Thou/mm3 (0.00-0.00); Nucleated Red Blood Cell % 0 /100 WBC (0); Platelet Count 192 Thou/mm3 (140-440); RDW Standard Deviation 51.4 fL (35.1-43.9); Red Blood Count 4.31 Miln/mm3 (4.50-5.90); White Blood Count 4.9 Thou/mm3 (3.8-10.6)
[2025-09-19 13:49] LABS: Alanine Aminotransferase 20 U/L (10-49); Albumin, Serum 4.4 gm/dL (3.4-4.8); Albumin/Globulin Ratio 2.3 (1.2-2.2); Alkaline Phosphatase 74 U/L (46-116); Anion Gap 9 (7-16); Aspartate Amino Transferase 38 U/L (0-34); BUN/Creatinine Ratio 10 Ratio (12-20); Bilirubin,Total 0.6 mg/dL (0.3-1.2); Blood Urea Nitrogen 10 mg/dL (9-23); Calcium 9.7 mg/dL (8.3-10.6); Calcium (Corrected) 9.7 mg/dL (8.5-10.1); Carbon Dioxide 27.7 mMol/L (20.0-31.0); Chloride 102 mMol/L (98-107); Creatinine (Component) 1.0 mg/dL (0.6-1.3); Globulin 1.9 gm/dL (2.3-3.5); Glucose 86 mg/dL (74-106); Osmolality,Calculated 275 (275-295); Potassium 4.3 mMol/L (3.4-5.1); Sodium 139 mMol/L (136-145); Thyroid Stimulating Hormone 1.87 uIU/mL (0.55-4.78); Total Protein 6.3 gm/dL (5.7-8.2); eGFR > 60 See Note
== END | disposition home or self-care (01) ==
LOC: COPL 12:59
PROVIDERS: PCP Family Medicine; Referring Provider Internal Medicine Hematology & Oncology; Visit Provider Internal Medicine Hematology & Oncology
DX: C44.209 Unspecified malignant neoplasm of skin of left ear and external auricular canal (principal)
CPT/HCPCS: 36415; 80053; 84443; 85025

== ENCOUNTER 2025-09-20 12:40 | Outpatient (RCR) | payer OTHER, SELFPAY | END 2025-09-29 23:59 | disposition home or self-care (01) | LOC: SCTC 12:40 | PROVIDERS: PCP Family Medicine; Referring Provider Family Medicine; Visit Provider Internal Medicine Hematology & Oncology | DX: Z51.0 Encounter for antineoplastic radiation therapy (principal); Z51.12 Encounter for antineoplastic immunotherapy; C44.229 Squamous cell carcinoma of skin of left ear and external auricular canal; K12.33 Oral mucositis (ulcerative) due to radiation; Y84.2 Radiological procedure and radiotherapy as the cause of abnormal reaction of the patient, or of later complication, without mention of misadventure at the time of the procedure | CPT/HCPCS: 77336; 77385; 96413; A4216; J1642; J3490; J9119 ==

== ENCOUNTER → 2025-10-11 | Outpatient (CLI) | payer OTHER, SELFPAY ==
[2025-10-11 13:43] LABS: Basophils # (Auto) 0.1 Thou/mm3 (0.0-0.2); Basophils % (Auto) 1 % (0-2.5); Eosinophils # (Auto) 0.4 Thou/mm3 (0.0-0.5); Eosinophils % (Auto) 7 % (0-10); Hematocrit 39.5 % (41.0-53.0); Hemoglobin 13.6 g/dL (13.5-16.0); Immature Granulocytes Auto 0.01 Thou/mm3 (0.00-0.00); Lymphocytes # (Auto) 0.8 Thou/mm3 (1.0-4.8); Lymphocytes % (Auto) 14 % (10-50); Mean Corpuscular HGB Conc 34.4 g/dl (31.0-37.0); Mean Corpuscular Hemoglobin 32.4 pg (25.0-35.0); Mean Corpuscular Volume 94 fL (80-100); Monocytes # (Auto) 0.5 Thou/mm3 (0.0-0.8); Monocytes % (Auto) 10 % (0-12); Neutrophils # (Auto) 3.7 Thou/mm3 (1.8-7.7); Neutrophils % (Auto) 68 % (37-80); Nucleated Red Blood Cell # 0.00 Thou/mm3 (0.00-0.00); Nucleated Red Blood Cell % 0 /100 WBC (0); Platelet Count 166 Thou/mm3 (140-440); RDW Standard Deviation 50.7 fL (35.1-43.9); Red Blood Count 4.20 Miln/mm3 (4.50-5.90); White Blood Count 5.5 Thou/mm3 (3.8-10.6)
[2025-10-11 13:55] LABS: Alanine Aminotransferase 21 U/L (10-49); Albumin, Serum 4.2 gm/dL (3.4-4.8); Albumin/Globulin Ratio 2.0 (1.2-2.2); Alkaline Phosphatase 74 U/L (46-116); Anion Gap 8 (7-16); Aspartate Amino Transferase 38 U/L (0-34); BUN/Creatinine Ratio 10 Ratio (12-20); Bilirubin,Total 0.6 mg/dL (0.3-1.2); Blood Urea Nitrogen 10 mg/dL (9-23); Calcium 10.1 mg/dL (8.3-10.6); Calcium (Corrected) 10.1 mg/dL (8.5-10.1); Carbon Dioxide 26.0 mMol/L (20.0-31.0); Chloride 101 mMol/L (98-107); Creatinine (Component) 1.0 mg/dL (0.6-1.3); Free T4 (Free Thyroxine) 1.11 ng/dL (0.89-1.76); Globulin 2.1 gm/dL (2.3-3.5); Glucose 93 mg/dL (74-106); Osmolality,Calculated 269 (275-295); Potassium 4.3 mMol/L (3.4-5.1); Sodium 135 mMol/L (136-145); Thyroid Stimulating Hormone 2.07 uIU/mL (0.55-4.78); Total Protein 6.3 gm/dL (5.7-8.2); eGFR > 60 See Note
== END | disposition home or self-care (01) ==
LOC: SCTO 13:08
PROVIDERS: PCP Family Medicine; Referring Provider Internal Medicine Hematology & Oncology; Visit Provider Internal Medicine Hematology & Oncology
DX: C44.209 Unspecified malignant neoplasm of skin of left ear and external auricular canal (principal)
CPT/HCPCS: 36415; 80053; 84439; 84443; 85025

== ENCOUNTER → 2025-10-23 | Outpatient (CLI) | payer OTHER, SELFPAY ==
[2025-10-23 14:52] LABS: Basophils # (Auto) 0.1 Thou/mm3 (0.0-0.2); Basophils % (Auto) 1 % (0-2.5); Eosinophils # (Auto) 0.4 Thou/mm3 (0.0-0.5); Eosinophils % (Auto) 8 % (0-10); Hematocrit 41.8 % (41.0-53.0); Hemoglobin 13.9 g/dL (13.5-16.0); Immature Granulocytes Auto 0.01 Thou/mm3 (0.00-0.00); Lymphocytes # (Auto) 0.9 Thou/mm3 (1.0-4.8); Lymphocytes % (Auto) 17 % (10-50); Mean Corpuscular HGB Conc 33.3 g/dl (31.0-37.0); Mean Corpuscular Hemoglobin 32.0 pg (25.0-35.0); Mean Corpuscular Volume 96 fL (80-100); Monocytes # (Auto) 0.4 Thou/mm3 (0.0-0.8); Monocytes % (Auto) 8 % (0-12); Neutrophils # (Auto) 3.5 Thou/mm3 (1.8-7.7); Neutrophils % (Auto) 66 % (37-80); Nucleated Red Blood Cell # 0.00 Thou/mm3 (0.00-0.00); Nucleated Red Blood Cell % 0 /100 WBC (0); Platelet Count 189 Thou/mm3 (140-440); RDW Standard Deviation 52.9 fL (35.1-43.9); Red Blood Count 4.34 Miln/mm3 (4.50-5.90); White Blood Count 5.3 Thou/mm3 (3.8-10.6)
[2025-10-23 15:04] LABS: Alanine Aminotransferase 21 U/L (10-49); Albumin, Serum 4.4 gm/dL (3.4-4.8); Albumin/Globulin Ratio 2.1 (1.2-2.2); Alkaline Phosphatase 72 U/L (46-116); Anion Gap 8 (7-16); Aspartate Amino Transferase 36 U/L (0-34); BUN/Creatinine Ratio 12 Ratio (12-20); Bilirubin,Total 0.5 mg/dL (0.3-1.2); Blood Urea Nitrogen 12 mg/dL (9-23); Calcium 9.9 mg/dL (8.3-10.6); Calcium (Corrected) 9.9 mg/dL (8.5-10.1); Carbon Dioxide 27.3 mMol/L (20.0-31.0); Chloride 103 mMol/L (98-107); Creatinine (Component) 1.0 mg/dL (0.6-1.3); Globulin 2.1 gm/dL (2.3-3.5); Glucose 115 mg/dL (74-106); Osmolality,Calculated 276 (275-295); Potassium 4.3 mMol/L (3.4-5.1); Sodium 138 mMol/L (136-145); Total Protein 6.5 gm/dL (5.7-8.2); eGFR > 60 See Note
== END | disposition home or self-care (01) ==
LOC: SCTO 13:58
PROVIDERS: PCP Family Medicine; Referring Provider Internal Medicine Hematology & Oncology; Visit Provider Internal Medicine Hematology & Oncology
DX: C44.209 Unspecified malignant neoplasm of skin of left ear and external auricular canal (principal)
CPT/HCPCS: 36415; 80053; 85025

== ENCOUNTER 2025-10-24 10:28 | Outpatient (RCR) | payer OTHER, SELFPAY ==
--- NOTE | 2025-10-04 15:06 | CTCTSUMM_ITS ---
[facility] 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 During the course of radiation pain appeared to be lessening with no palpable mass in the left ear or the neck. Considering the aggressiveness of the skin cancer patient saw medical oncologist who initiated cemiplimab during the last week of radiation. (G) Discharge Instructions and F/U Appt was given: The patient was also advised to continue follow-up with Dr. Swenson and primary care physician: Cc: Loc Owen MD [facility] [place] Electronically signed by: Jeffrey Yung MD, RIP 10/04/2025 3:04 PM
--- NOTE | 2025-10-29 18:28 | CTCFLWUP_ITS ---
Patient: TROY HILL : 1940 Page 3 of 5 FOLLOW UP NOTE DATE OF SERVICE: 10/24/2025 NAME: TROY HILL ACCOUNT: [id number] : 1940 AGE: 85 INTERVAL HISTORY: Patient is on immunotherapy and doing well. Patient says lesions all over his body have disappearing. No side effects ONCOLOGY HISTORY:?[facility] Hx? 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 Tobacco?Pack?per?Day:?0 ETOH?Use:?DENIES Drug?Note:?DENIES Social?History?Note:?LIVES???WITH? MEDICATIONS: 1. allopurinol - 300 mg 1 tab Daily 2. amlodipine - 5 mg Daily 3. atorvastatin - 10 mg 1 tab Daily 4. dabigatran etexilate - 110 mg 1 Capsule Twice a Day 5. doxycycline hyclate - 100 mg 1 tab 1 tab twice daily 6. fenofibrate - 160 mg 1 tab Daily 7. glipiZIDE - 10 mg tab As directed 8. insulin NPH isoph U-100 human - 100 unit/mL (3 mL) As directed 9. Lipitor - 10 mg Daily 10. lisinopril - 20 mg 1 tab Twice a Day 11. metFORMIN - 1,000 mg 1 tab Twice a Day 12. omeprazole - 20 mg Daily 13. Tylenol-Codeine #3 - 300-30 mg 1 tab As directed?Palabra Meds? Medications Last Reconciled by Macie Conley MD on 10/24/2025 ALLERGIES: No Known Drug Allergies REVIEW OF SYSTEMS: A complete 14-point review of systems was performed and is negative except as noted in interval history. PHYSICAL EXAMINATION:?[facility] PE? VITAL SIGNS: Temperature?98.7, B/P?159/81, Oxygen?Saturation?97% Weight?194?lbs (Change?since?10/12/25:?-3.4?lbs) PAIN: 0 - No pain ECOG Performance Status: 1 - Symptomatic; ambulatory; restricted in strenuous activity GENERAL APPEARANCE: Appears well, in no apparent distress, appropriately interactive. HEENT: Normocephalic, no temporal wasting, normal conjunctiva, no scleral icterus, normal hearing, lips without lesions, neck normal range of motion. CARDIOVASCULAR: Not assessed. PULMONARY: Normal respiratory effort, no respiratory distress or use of accessory muscles, speaking in full sentences, no tachypnea. EXTREMITIES: No pedal edema or cyanosis. SKIN: External ears look cosmetically better with the decreased lesions especially on the left ear NEUROLOGIC: Alert and oriented x4. PSHYCHIATRIC: Appropriate affect, mood normal, behavior normal, intact thought and speech. LABORATORY DATA: I have personally reviewed and interpreted each of the patient?s relevant lab tests, abnormal findings are below: Date 10/11/25 10/23/25 ??WHITE?BLOOD?COUNT?(Thou/mm3) 5.5 5.3 ??RED?BLOOD?COUNT?(Miln/mm3) 4.20?L 4.34?L ??HEMOGLOBIN?(gm/dl) 13.6 13.9 ??HEMATOCRIT?(%) 39.5?L 41.8 ??PLATELET?COUNT?(Thou/mm3) 166 189 ??NEUTROPHILS?%,?AUTO?(%) 68 66 ??LYMPH?%,?AUTO?(%) 14 17 ??NEUTROPHILS,?AUTO?(Thou/mm3) 3.7 3.5 ??GLUCOSE,RANDOM?(mg/dL) 93 115?H ??BLOOD?UREA?NITROGEN?(mg/dL) 10 12 ??CREATININE?(mg/dL) 1.00 1.00 ??SODIUM?(mmol/L) 135?L 138 ??POTASSIUM?(mmol/L) 4.3 4.3 ??CHLORIDE?(mmol/L) 101 103 ??CrCl?(CandG)?(ml/min) 56.60 56.25 ??AST/SGOT?(Unit/L) 38?H 36?H ??ALT/SGPT?(Unit/L) 21 21 ??ALKALINE?PHOSPHATASE?(Unit/L) 74 72 ??BILIRUBIN,?TOTAL?(mg/dL) 0.6 0.5 ??PROTEIN?TOTAL?(gm/dl) 6.3 6.5 ??ALBUMIN,?SERUM?(gm/dl) 4.2 4.4 ??GLOBULIN?(gm/dl) 2.1?L 2.1?L ??ALBUMIN/GLOBULIN?RATIO 2.0 2.1 ??CALCIUM,?SERUM?(mg/dL) 10.1 9.9 ??CALCIUM?SERUM?(CORRECTED)?(mg/dL) 10.1 9.9 ASSESSMENT/PLAN:?Bradley Swenson Assessment/Plan? Cutaneous squamous cell cancer Patient have locally advanced disease as well as cervical lymph nodes Not a candidate for definitive surgery Patient is getting palliative radiation Patient is on cemiplimab since patient has completed radiation Port catheter was placed TSH T4 Plan is to continue immunotherapy for 2 years RTC in 3 months ORDERS: Order # Description [id number] Follow Up Appointment [id number] CBC + Comprehensive Metabolic Panel [id number] Lab Appointment [id number] Follow Up Appointment [id number] CBC + Comprehensive Metabolic Panel [id number] Lab Appointment [id number] Follow Up Appointment [id number] CBC + Comprehensive Metabolic Panel [id number] Lab Appointment [id number] Follow Up Appointment [id number] CBC + Comprehensive Metabolic Panel [id number] Lab Appointment [id number] Follow Up Appointment [id number] CBC + Comprehensive Metabolic Panel [id number] Lab Appointment [id number] Follow Up Appointment [id number] CBC + Comprehensive Metabolic Panel [id number] Lab Appointment [id number] Follow Up Appointment [id number] CBC + Comprehensive Metabolic Panel [id number] Lab Appointment [id number] Follow Up Appointment [id number] CBC + Comprehensive Metabolic Panel [id number] Lab Appointment [id number] Follow Up Appointment [id number] CBC + Comprehensive Metabolic Panel [id number] Lab Appointment [id number] Follow Up Appointment [id number] CBC + Comprehensive Metabolic Panel [id number] Lab Appointment [id number] Follow Up Appointment [id number] CBC + Comprehensive Metabolic Panel [id number] Lab Appointment [id number] Follow Up Appointment [id number] CBC + Comprehensive Metabolic Panel [id number] Lab Appointment [id number] Follow Up Appointment [id number] CBC + Comprehensive Metabolic Panel [id number] Lab Appointment [id number] Follow Up Appointment [id number] CBC + Comprehensive Metabolic Panel [id number] Lab Appointment [id number] Follow Up Appointment [id number] CBC + Comprehensive Metabolic Panel [id number] Lab Appointment [id number] Follow Up Appointment [id number] CBC + Comprehensive Metabolic Panel [id number] Lab Appointment [id number] Follow Up Appointment [id number] CBC + Comprehensive Metabolic Panel [id number] Lab Appointment [id number] Follow Up Appointment [id number] CBC + Comprehensive Metabolic Panel [id number] Lab Appointment [id number] Follow Up Appointment [id number] CBC + Comprehensive Metabolic Panel [id number] Lab Appointment [id number] Follow Up Appointment [id number] CBC + Comprehensive Metabolic Panel [id number] Lab Appointment [id number] Follow Up Appointment [id number] CBC + Comprehensive Metabolic Panel [id number] Lab Appointment [id number] Follow Up Appointment [id number] CBC + Comprehensive Metabolic Panel [id number] Lab Appointment [id number] Follow Up Appointment [id number] CBC + Comprehensive Metabolic Panel [id number] Lab Appointment [id number] Follow Up Appointment [id number] CBC + Comprehensive Metabolic Panel [id number] Lab Appointment [id number] Follow Up Appointment RETURN TO CLINIC: I reviewed the diagnosis, prognosis, and recommended treatment/procedure options with the patient (and/or their legal personal financial representative), including the potential benefits, risks, side effects and alternative therapies. We also discussed the option of no treatment and the possibility of clinical trial participation, if applicable. All questions were addressed, and they demonstrated understanding. They provided informed consent to proceed with the proposed plan of care. BILLING AND COMPLIANCE: I reviewed external records from providers outside my specialty as summarized above. I spent a total of 50 minutes on this patient?s care on the day of their visit excluding time spent related to any billed procedures. This time includes time spent with the patient as well as time spent documenting in the medical record, reviewing patients records and tests, obtaining history, placing orders, communicating with other healthcare professionals, counseling the patient, family or caregiver, and/or care coordination for the diagnoses above. Electronically Signed by: Marvin Swenson MD T: 6:26 PM CC: PCP: Loc Akins Referring: Loc Akins This document was completed utilizing speech recognition software. Grammatical errors, random word insertions, pronoun errors, and incomplete sentences are an occasional consequence of this system due to software limitations, ambient noise, and hardware issues. Any formal questions or concerns about the content, text or information contained within the body of this dictation should be directly addressed to the provider for clarification.
== END 2025-10-29 23:59 | disposition home or self-care (01) ==
LOC: SCTC 10:28
PROVIDERS: PCP Family Medicine; Referring Provider Family Medicine; Visit Provider Internal Medicine Hematology & Oncology
DX: Z51.11 Encounter for antineoplastic chemotherapy (principal); C44.229 Squamous cell carcinoma of skin of left ear and external auricular canal
CPT/HCPCS: 96413; 99212; A4216; J1642; J3490; J9119; G0463

== ENCOUNTER → 2025-11-01 | Outpatient (CLI) | payer OTHER, SELFPAY ==
[2025-11-01 13:38] LABS: Basophils # (Auto) 0.1 Thou/mm3 (0.0-0.2); Basophils % (Auto) 1 % (0-2.5); Eosinophils # (Auto) 0.3 Thou/mm3 (0.0-0.5); Eosinophils % (Auto) 5 % (0-10); Hematocrit 42.7 % (41.0-53.0); Hemoglobin 14.5 g/dL (13.5-16.0); Immature Granulocytes Auto 0.02 Thou/mm3 (0.00-0.00); Lymphocytes # (Auto) 1.1 Thou/mm3 (1.0-4.8); Lymphocytes % (Auto) 17 % (10-50); Mean Corpuscular HGB Conc 34.0 g/dl (31.0-37.0); Mean Corpuscular Hemoglobin 32.5 pg (25.0-35.0); Mean Corpuscular Volume 96 fL (80-100); Monocytes # (Auto) 0.5 Thou/mm3 (0.0-0.8); Monocytes % (Auto) 8 % (0-12); Neutrophils # (Auto) 4.5 Thou/mm3 (1.8-7.7); Neutrophils % (Auto) 69 % (37-80); Nucleated Red Blood Cell # 0.00 Thou/mm3 (0.00-0.00); Nucleated Red Blood Cell % 0 /100 WBC (0); Platelet Count 194 Thou/mm3 (140-440); RDW Standard Deviation 51.9 fL (35.1-43.9); Red Blood Count 4.46 Miln/mm3 (4.50-5.90); White Blood Count 6.5 Thou/mm3 (3.8-10.6)
[2025-11-01 13:53] LABS: Alanine Aminotransferase 19 U/L (10-49); Albumin, Serum 4.5 gm/dL (3.4-4.8); Albumin/Globulin Ratio 1.8 (1.2-2.2); Alkaline Phosphatase 70 U/L (46-116); Anion Gap 8 (7-16); Aspartate Amino Transferase 34 U/L (0-34); BUN/Creatinine Ratio 12 Ratio (12-20); Bilirubin,Total 0.6 mg/dL (0.3-1.2); Blood Urea Nitrogen 14 mg/dL (9-23); Calcium 10.0 mg/dL (8.3-10.6); Calcium (Corrected) 10.0 mg/dL (8.5-10.1); Carbon Dioxide 28.2 mMol/L (20.0-31.0); Chloride 102 mMol/L (98-107); Creatinine (Component) 1.2 mg/dL (0.6-1.3); Globulin 2.5 gm/dL (2.3-3.5); Glucose 66 mg/dL (74-106); Osmolality,Calculated 274 (275-295); Potassium 4.2 mMol/L (3.4-5.1); Sodium 138 mMol/L (136-145); Total Protein 7.0 gm/dL (5.7-8.2); eGFR 59 See Note
[2025-11-01 13:54] LABS: Thyroid Stimulating Hormone 2.31 uIU/mL (0.55-4.78)
== END | disposition home or self-care (01) ==
PROVIDERS: PCP Family Medicine; Referring Provider Internal Medicine Hematology & Oncology; Visit Provider Internal Medicine Hematology & Oncology
DX: C44.209 Unspecified malignant neoplasm of skin of left ear and external auricular canal (principal); E03.9 Hypothyroidism, unspecified
CPT/HCPCS: 36415; 80053; 84443; 85025

== ENCOUNTER 2025-11-27 12:51 | Outpatient (RCR) | payer OTHER, SELFPAY | END 2025-11-29 23:59 | disposition home or self-care (01) | LOC: SCTC 12:51 | PROVIDERS: PCP Family Medicine; Referring Provider Family Medicine; Visit Provider Internal Medicine Hematology & Oncology | DX: Z51.12 Encounter for antineoplastic immunotherapy (principal); C44.229 Squamous cell carcinoma of skin of left ear and external auricular canal; Z92.3 Personal history of irradiation | CPT/HCPCS: 96413; A4216; J1642; J3490; J7040; J9119 ==

== ENCOUNTER → 2025-11-27 | Outpatient (CLI) | payer OTHER, SELFPAY ==
[2025-11-27 11:25] LABS: Basophils # (Auto) 0.1 Thou/mm3 (0.0-0.2); Basophils % (Auto) 1 % (0-2.5); Eosinophils # (Auto) 0.3 Thou/mm3 (0.0-0.5); Eosinophils % (Auto) 5 % (0-10); Hematocrit 41.0 % (41.0-53.0); Hemoglobin 13.9 g/dL (13.5-16.0); Immature Granulocytes Auto 0.01 Thou/mm3 (0.00-0.00); Lymphocytes # (Auto) 0.6 Thou/mm3 (1.0-4.8); Lymphocytes % (Auto) 12 % (10-50); Mean Corpuscular HGB Conc 33.9 g/dl (31.0-37.0); Mean Corpuscular Hemoglobin 33.1 pg (25.0-35.0); Mean Corpuscular Volume 98 fL (80-100); Monocytes # (Auto) 0.4 Thou/mm3 (0.0-0.8); Monocytes % (Auto) 7 % (0-12); Neutrophils # (Auto) 4.0 Thou/mm3 (1.8-7.7); Neutrophils % (Auto) 75 % (37-80); Nucleated Red Blood Cell # 0.00 Thou/mm3 (0.00-0.00); Nucleated Red Blood Cell % 0 /100 WBC (0); Platelet Count 179 Thou/mm3 (140-440); RDW Standard Deviation 53.5 fL (35.1-43.9); Red Blood Count 4.20 Miln/mm3 (4.50-5.90); White Blood Count 5.2 Thou/mm3 (3.8-10.6)
[2025-11-27 11:47] LABS: Alanine Aminotransferase 17 U/L (10-49); Albumin, Serum 4.0 gm/dL (3.4-4.8); Albumin/Globulin Ratio 1.9 (1.2-2.2); Alkaline Phosphatase 61 U/L (46-116); Anion Gap 9 (7-16); Aspartate Amino Transferase 31 U/L (0-34); BUN/Creatinine Ratio 15 Ratio (12-20); Bilirubin,Total 0.9 mg/dL (0.3-1.2); Blood Urea Nitrogen 18 mg/dL (9-23); Calcium 9.7 mg/dL (8.3-10.6); Calcium (Corrected) 9.7 mg/dL (8.5-10.1); Carbon Dioxide 28.6 mMol/L (20.0-31.0); Chloride 106 mMol/L (98-107); Creatinine (Component) 1.2 mg/dL (0.6-1.3); Free T4 (Free Thyroxine) 1.02 ng/dL (0.89-1.76); Globulin 2.1 gm/dL (2.3-3.5); Glucose 72 mg/dL (74-106); Osmolality,Calculated 287 (275-295); Potassium 4.4 mMol/L (3.4-5.1); Sodium 144 mMol/L (136-145); Thyroid Stimulating Hormone 2.28 uIU/mL (0.55-4.78); Total Protein 6.1 gm/dL (5.7-8.2); eGFR 59 See Note
== END | disposition home or self-care (01) ==
LOC: SCTO 10:21
PROVIDERS: PCP Family Medicine; Referring Provider Internal Medicine Hematology & Oncology; Visit Provider Internal Medicine Hematology & Oncology
DX: C44.209 Unspecified malignant neoplasm of skin of left ear and external auricular canal (principal)
CPT/HCPCS: 36415; 80053; 84439; 84443; 85025